=== PATIENT | female | born 1940 | race Caucasian/White ===

== ENCOUNTER 2019-09-16 15:04 | Inpatient (IN) ==
[2019-09-16 15:59] LABS: Basophils # 0.1 10*3/uL (0.0-0.2); Basophils % 0.4 % (0.0-0.8); Hematocrit 40.8 VOL% (35.7-47.0); Hemoglobin 13.8 GM/DL (12.0-16.0); Immature Granulocytes % 2.2 %; Immature Granulocytes Absolute 0.33 #; Lymphocytes # 0.7 10*3/uL (1.4-4.0); Lymphocytes % 4.6 % (21.3-54.2); Mean Corpuscular HGB Conc 33.8 GM/DL (32-36); Mean Corpuscular Volume 91.3 FL (87-102); Neutrophils % 89.8 % (38.7-73.9); Platelet Count 79 T/CUMM (130-400); Red Blood Count 4.47 MC/CUMM (3.8-5.5); Red Cell Distribution Width 14.3 % (9.3-17.3); White Blood Count 15.1 T/CUMM (4-12)
[2019-09-16 16:15] LABS: Osmolality,Calculated 277.7 MOS/KG (273-304)
[2019-09-16] MEDS ORDERED: LACTATED RINGERS 1,000 ML IV ONE ×2 (16:27→17:40)
[2019-09-16 16:36] LABS: Lymphocytes 9 % (20-55); Segmented Neutrophils 86 % (50-85); Total Cells Counted 100
[2019-09-16] MEDS ORDERED: POTASSIUM CHLORIDE 20 MEQ TABLET PO STA (17:16)
[2019-09-16 17:19] LABS: Ferritin 365.3 ng/ml (8-252)
[2019-09-16] MEDS ORDERED: cefTRIAXone 1,000 MG in SODIUM CHLORIDE 0.9% 100 ML IV STA (17:22)
[2019-09-16 17:26] LABS: Albumin 2.8 G/DL (3.4-5.0); Bilirubin,Total 6.6 MG/DL (0.2-1.0); Osmolality,Calculated 275.8 MOS/KG (273-304); Total Protein 6.1 G/DL (6.4-8.3)
[2019-09-16 17:35] LABS: INR 1.7; PT Patient Result 18.2 SECS (9.8-11.9)
[2019-09-16 18:25] LABS: Amorphous Crystals,Urine Occasional /HPF (Few); Apearance,Urine CLOUDY (Clear); Bacteria,Urine Moderate /HPF (Few); Blood, Urine Moderate mg/dL (Negative); Glucose,Urine (UA) 50 mg/dL (Negative); Hyaline Casts,Urine 25 /LPF (0-3); Ketones,Urine 5 mg/dL (Negative); Mucus,Urine Few /LPF (Occasional); Nitrite,Urine Positive (Negative); Protein,Urine 100 MG/DL; Squamous Epithelial Cell,Urine Occasional /HPF (0-10); Urine Color Amber (Yellow); Urine Specific Gravity 1.018 (1.001-1.035); WBC,Urine 2 /HPF (0-6)
[2019-09-16 18:26] LABS: Bilirubin,Urine Moderate mg/dL (Negative)
[2019-09-16] MEDS ORDERED: ALUMINUM/MAGNES/SIMETH MAX STR 30 ML UDCUP PO PRN (19:03)
[2019-09-16] MEDS ORDERED: ACETAMINOPHEN 325 MG TABLET PO PRN (19:03)
[2019-09-16] MEDS ORDERED: DOCUSATE SODIUM 100 MG CAPSULE PO PRN (19:03)
[2019-09-16] MEDS ORDERED: PROMETHAZINE 25 MG/1 ML VIAL IM PRN (19:03)
[2019-09-16] MEDS ORDERED: guaiFENesin/DM ER 600-30 MG TABLET PO PRN (19:03)
[2019-09-16] MEDS ORDERED: AZITHROMYCIN INJ 500 MG in SODIUM CHLORIDE 0.9% 250 ML IV SCH (19:30)
[2019-09-17] MEDS: ALBUTEROL/IPRATROPIUM 3 ML NEB RESP TX SCH ×4 (00:50→23:14)
[2019-09-17] MEDS: POTASSIUM CHLORIDE INJ 20 MEQ in LACTATED RINGERS 1,000 ML IV SCH ×3 (01:00→18:44)
[2019-09-17 03:26] LABS: Basophils % 0.1 % (0.0-0.8); Hematocrit 39.1 VOL% (35.7-47.0); Hemoglobin 13.8 GM/DL (12.0-16.0); Immature Granulocytes % 8.5 %; Immature Granulocytes Absolute 0.96 #; Lymphocytes # 0.5 10*3/uL (1.4-4.0); Lymphocytes % 4.3 % (21.3-54.2); Mean Corpuscular HGB Conc 35.3 GM/DL (32-36); Mean Corpuscular Volume 88.5 FL (87-102); Mean Platelet Volume 12.8 FL (9.6-12.0); Monocytes % 2.7 % (1.7-12.7); Neutrophils % 84.4 % (38.7-73.9); Platelet Count 61 T/CUMM (130-400); Red Blood Count 4.42 MC/CUMM (3.8-5.5); Red Cell Distribution Width 14.5 % (9.3-17.3); White Blood Count 11.3 T/CUMM (4-12)
[2019-09-17 03:27] LABS: Osmolality,Calculated 281.5 MOS/KG (273-304)
[2019-09-17] MEDS: MORPHINE 4 MG/1 ML VIAL IV PRN ×2 (04:10→19:03)
[2019-09-17 05:06] LABS: Band Neutrophils 10 % (0-10); Lymphocytes 6 % (20-55); Metamyelocytes 2 %; Segmented Neutrophils 79 % (50-85); Total Cells Counted 100
[2019-09-17 05:07] LABS: Microcytosis Slight; Platelet Estimate Decreased
[2019-09-17] MEDS ORDERED: LACTATED RINGERS 1,000 ML IV ONE (08:44)
[2019-09-17] MEDS: AZITHROMYCIN 250 MG TABLET PO SCH (09:06)
[2019-09-17] MEDS: IBUPROFEN 600 MG TABLET PO PRN (09:07)
[2019-09-17] MEDS: POTASSIUM CHLORIDE 20 MEQ TABLET PO SCH ×2 (09:08→14:28)
[2019-09-17] MEDS: cefTRIAXone 1,000 MG in SYRINGE 1 EACH IV SCH (17:07)
[2019-09-18] MEDS: POTASSIUM CHLORIDE INJ 20 MEQ in LACTATED RINGERS 1,000 ML IV SCH ×3 (02:40→19:00)
[2019-09-18 04:41] LABS: Basophils % 0.1 % (0.0-0.8); Eosinophils % 0.2 % (0.00-10.9); Hemoglobin 12.6 GM/DL (12.0-16.0); Immature Granulocytes % 1.4 %; Lymphocytes # 0.9 10*3/uL (1.4-4.0); Lymphocytes % 6.3 % (21.3-54.2); Mean Corpuscular Volume 89.8 FL (87-102); Mean Platelet Volume 14.5 FL (9.6-12.0); Red Blood Count 4.01 MC/CUMM (3.8-5.5); Red Cell Distribution Width 14.7 % (9.3-17.3); White Blood Count 14.8 T/CUMM (4-12)
[2019-09-18 04:51] LABS: Platelet Count 30 T/CUMM (130-400)
[2019-09-18 04:57] LABS: Calcium 7.8 MG/DL (8.5-10.1); Osmolality,Calculated 287.5 MOS/KG (273-304)
[2019-09-18] MEDS: ALBUTEROL/IPRATROPIUM 3 ML NEB RESP TX SCH ×4 (05:16→19:28)
[2019-09-18] MEDS: MORPHINE 4 MG/1 ML VIAL IV PRN ×2 (06:23→22:58)
[2019-09-18 06:48] LABS: Band Neutrophils 8 % (0-10); Lymphocytes 3 % (20-55); Metamyelocytes 1 %; Segmented Neutrophils 83 % (50-85); Total Cells Counted 100
[2019-09-18 06:49] LABS: Platelet Estimate Decreased; Polychromasia Slight
[2019-09-18 06:50] LABS: Atypical Lymphocytes Few; Ovalocytes Slight
[2019-09-18] MEDS: AZITHROMYCIN 250 MG TABLET PO SCH (08:41)
[2019-09-18] MEDS: cefTRIAXone 1,000 MG in SYRINGE 1 EACH IV SCH (17:48)
[2019-09-19] MEDS: POTASSIUM CHLORIDE INJ 20 MEQ in LACTATED RINGERS 1,000 ML IV SCH ×2 (02:28→15:00)
[2019-09-19] MEDS: ALBUTEROL/IPRATROPIUM 3 ML NEB RESP TX SCH ×4 (04:58→20:13)
[2019-09-19 06:40] LABS: Basophils % 0.1 % (0.0-0.8); Eosinophils % 0.2 % (0.00-10.9); Hematocrit 37.3 VOL% (35.7-47.0); Immature Granulocytes % 2.7 %; Immature Granulocytes Absolute 0.34 #; Lymphocytes # 0.8 10*3/uL (1.4-4.0); Lymphocytes % 6.8 % (21.3-54.2); Mean Corpuscular HGB Conc 34.9 GM/DL (32-36); Mean Corpuscular Volume 88.8 FL (87-102); Mean Platelet Volume 13.9 FL (9.6-12.0); Monocytes % 8.2 % (1.7-12.7); Red Cell Distribution Width 15.2 % (9.3-17.3); White Blood Count 12.4 T/CUMM (4-12)
[2019-09-19 06:43] LABS: Platelet Count 39 T/CUMM (130-400)
[2019-09-19 07:07] LABS: Calcium 8.3 MG/DL (8.5-10.1); Osmolality,Calculated 282.7 MOS/KG (273-304)
[2019-09-19 07:42] LABS: Band Neutrophils 9 % (0-10); Eosinophils 1 % (0-10); Lymphocytes 5 % (20-55); Metamyelocytes 3 %; Platelet Estimate Decreased; Segmented Neutrophils 72 % (50-85); Total Cells Counted 100
[2019-09-19] MEDS: AZITHROMYCIN 250 MG TABLET PO SCH (09:12)
[2019-09-19] MEDS: IBUPROFEN 600 MG TABLET PO PRN (16:27)
[2019-09-19] MEDS: cefTRIAXone 1,000 MG in SYRINGE 1 EACH IV SCH (17:52)
[2019-09-19] MEDS: MORPHINE 4 MG/1 ML VIAL IV PRN (22:36)
[2019-09-20] MEDS: ALBUTEROL/IPRATROPIUM 3 ML NEB RESP TX SCH ×4 (01:00→19:41)
[2019-09-20] MEDS: POTASSIUM CHLORIDE INJ 20 MEQ in LACTATED RINGERS 1,000 ML IV SCH ×4 (01:54→18:12)
[2019-09-20] MEDS: AZITHROMYCIN 250 MG TABLET PO SCH (08:18)
[2019-09-20] MEDS: cefTRIAXone 1,000 MG in SYRINGE 1 EACH IV SCH (17:12)
[2019-09-21] MEDS: ALBUTEROL/IPRATROPIUM 3 ML NEB RESP TX SCH ×2 (01:00→07:19)
[2019-09-21] MEDS: AZITHROMYCIN 250 MG TABLET PO SCH (09:11)
[2019-09-21] MEDS: POTASSIUM CHLORIDE INJ 20 MEQ in LACTATED RINGERS 1,000 ML IV SCH ×2 (09:12→11:43)
[2019-09-21] MEDS ORDERED: HEPARIN LOCK FLUSH 500 UNIT/5 ML SYRINGE IV ONE (11:28)
[2019-09-21 11:36] VITALS: BP 144/57
== END 2019-09-21 13:25 | disposition hospice, home (50) | DRG 871 ==
LOC: EDBD → EDUNIT# → N.ED 15:04 → SUATTDRO 19:03 → N.EDINP 19:03 → N.4E 09-17 00:17
PROVIDERS: ADMIT Internal Medicine Geriatric Medicine; ATTEND Internal Medicine